=== PATIENT | female | born 1980 | race Caucasian/White ===

== ENCOUNTER → 2021-06-02 | Outpatient (CLI) | payer BC ==
--- NOTE | 2021-06-03 10:04 | REP ---
INDICATION: GENERALIZED ABDOMINAL PAIN. COMPARISON: None. TECHNIQUE: 3 mm axial images were obtained through the abdomen without contrast. FINDINGS: No significant abnormality is noted at the lung bases. The liver, spleen and pancreas appear normal. Surgical clips are noted in the gallbladder fossa. The adrenal glands appear normal bilaterally. Both kidneys are also normal with no stones, masses or hydronephrosis evident. No free air or evidence of bowel obstruction is identified. Scattered fecal debris is seen through the ascending and transverse colon however the descending colon contains only a small amount of fecal debris. No significant abnormality is seen in the visualized thoracolumbar spine. IMPRESSION: No acute abnormality is identified. <Electronically signed by Mickey Avelar > 06/03/21 1006
== END ==
LOC: M RAD 17:55
PROVIDERS: ATTEND Nurse Practitioner Family
DX: R10.11 Right upper quadrant pain (principal); R10.31 Right lower quadrant pain